=== PATIENT | female | born 1960 | race African-American/Black ===

== ENCOUNTER 2022-03-19 10:27 | Emergency (ER) | payer OTHER ==
[~2022-03-19] VITALS: Ht 165.1 cm; Wt 82.0 kg
[2022-03-19 11:35] VITALS: BP 161/92
[2022-03-19] MEDS ORDERED: ONDANSETRON HCL 4MG/2ML INJ IV ONE (11:45)
[2022-03-19] MEDS ORDERED: SODIUM CHLORIDE 0.9% 1,000 ML IV ONE (11:45)
[2022-03-19] MEDS ORDERED: ASPIRIN 81MG TABLET PO ONE (11:45)
[2022-03-19 12:00] LABS: BASOPHILS % 0.4 % (0.0-2.0); HEMATOCRIT. 38.9 % (36.0-48.0); HEMOGLOBIN. 12.6 g/dL (12.0-16.0); LYMPHOCYTES % 14.1 % (20.0-50.0); MEAN CORPUSCULAR HEMOGLOBIN 27.6 pg (28.0-32.0); MEAN CORPUSCULAR VOLUME 85.4 fL (81.0-99.0); MEAN PLATELET VOLUME 9.5 fl (7.4-10.4); MONOCYTES % 4.3 % (2.0-8.0); NEUTROPHILS % 81.2 % (40.0-76.0); PLATELET 211 x1000/uL (130-400); RED BLOOD CELL COUNT 4.56 mill/uL (4.2-5.4); RED CELL DISTRIBUTION WIDTH 15.3 % (11.6-14.6)
[2022-03-19 12:09] LABS: CHLORIDE 103 mEq/L (98-107)
[2022-03-19 12:42] LABS: CLARITY URINE CLOUDY (CLEAR); COLOR URINE YELLOW (YELLOW); KETONES URINE NEGATIVE (NEGATIVE); LEUKOCYTE ESTERASE URINE TRACE (NEGATIVE); NITRITE URINE NEGATIVE (NEGATIVE); OCCULT BLOOD URINE TRACE (NEGATIVE); PROTEIN URINE 2+ (NEGATIVE); SPECIFIC GRAVITY URINE 1.017 (1.005-1.030); UROBILINOGEN URINE 0.2 E.U./dL (0.2-1.0)
[2022-03-19] MEDS ORDERED: CEFTRIAXONE 1 G PREMIX 50 ML IV ONE (13:15)
[2022-03-19 14:49] LABS: INR 0.9; PARTIAL THROMBOPLASTIN TIME 21.6 sec (23.4-31.0); PROTHROMBIN TIME 10.2 sec (9.6-11.0)
[2022-03-19] MEDS ORDERED: CEPH500C2 MT (16:01)
== END 2022-03-19 16:08 | disposition left against medical advice (07) ==
LOC: ER 11:09
DX: R06.02 Shortness of breath (principal); R42 Dizziness and giddiness; R11.10 Vomiting, unspecified; N39.0 Urinary tract infection, site not specified; E11.9 Type 2 diabetes mellitus without complications; E78.00 Pure hypercholesterolemia, unspecified; I10 Essential (primary) hypertension; Z98.51 Tubal ligation status
CPT/HCPCS: 36415; 71045; 78582; 80053; 81003; 83880; 84443; 84484; 85025; 85379; 85610; 85730; 87086; 93005; 93970; 96361; 96374; 99285; A9540; A9558; J2405; J7030; Z7610